=== PATIENT | female | born 1945 | race Caucasian/White ===

== ENCOUNTER → 2017-02-02 | Outpatient (CLI) | payer OTHER ==
[~2017-02-02] MED LIST: CELEBREX 200 M200 M1 PO; DYMISTA NASAL S23 GM NS; FLONASE NASAL; LOPRESSOR50 PO; [UNRECOGNIZED DRUG - OTHER] NASAL
== END ==
LOC: MRI 10:51
DX: M76.62 Achilles tendinitis, left leg (principal); M25.472 Effusion, left ankle

== ENCOUNTER 2018-08-10 12:23 | Inpatient (IN) | payer OTHER ==
[~2018-08-10] VITALS: Ht 157.5 cm; Wt 49.4 kg
--- NOTE | ~2018-08-10 | HC ---
[facility] [place] [address] CONSULTATION Name: KENTON STEVENS Room #: 357-P [facility] IN M.R.#: [id number] Admission: 08/10/18 Attend Phys: Leonard Gee MD Discharge: Date of : 47 Report #: [id number] THIS REPORT FOR: //name// CC: Leonard Benitez FAM unknown El Ley MD REQUESTING PHYSICIAN: Leonard Gee MD REASON FOR CONSULT: Fever in spite of outpatient antibiotics and dropping white count. 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 This originally diagnosed in 01/2016. She began bendamustine and rituximab in 02/2016. She had finished that chemotherapy probably in 07/2016. She had some evidence of progressive disease and unfortunately recently has become more progressive. The patient had a repeat biopsy that showed the same disease. She had a visit with a transplant doctor, who thought that since she was a short relapse, high risk that they would suggest R-CHOP chemotherapy x 4, followed by peripheral stem cell transplant. She wished to proceed with that versus more palliative type direction. She received her first cycle of R-CHOP chemotherapy at the very beginning of 07/2018. Unfortunately, in the office on the , she was having yellow sputum and low-grade temperature, began Levaquin. As an outpatient, this has persisted. She does note that her lymph nodes in the right groin are smaller. The patient reports having some sinus difficulties, which are old for her, but more recently, has more yellowish colored phlegm production, occasional flecks of blood, occasional headaches with fever, not really a sore throat except for coughing, a little bit of queasy stomach with her past steroids. No ankle or arm swelling. No skin rash. No blood in urine or stool. Had little bit of constipation, probably from antiemetics. No diarrhea. Family members around [place], her daughter, son-in-law and child have been slightly sick but it is more of a viral illness. She has been having higher fevers and had fever to 102+ oral last night. 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 Also, history of PSVT. Also, history of sinus difficulties and some seasonal allergies. Does also have a history of mitral valve disease, mild obstructive sleep apnea and asthma. 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 FAMILY HISTORY: Her daughter is a nurse at [employer] [address] [place] [address] CONSULTATION Name: KENTON STEVENS Room #: 357-P [facility] IN M.R.#: [id number] Admission: 08/10/18 Attend Phys: Leonard Gee MD Discharge: Date of : 47 Report #: [id number]. Her son works here in town. MEDICATIONS: At this time in the hospital currently include loratadine 10 mg daily, allopurinol 100 daily, metoprolol 25 daily, pantoprazole 40 daily, vancomycin q.12, cefepime q.8, guaifenesin 600 b.i.d., Lovenox 40 at bedtime, levofloxacin daily, Tylenol p.r.n., Zofran p.r.n., IV fluids. She is also receiving Tamiflu 75 b.i.d. for 10 doses. PHYSICAL EXAMINATION: GENERAL: The patient appears her stated age. VITAL SIGNS: Height is 5 feet 2, which is 157.5 cm. Weight is 109 pounds or 49.4 kilograms. Blood pressure is 99/49, O2 sat of 93%, respirations 18, pulse 80, temperature last night was 102.9 orally and currently 99.7. HEENT: Oropharynx without any erythema or leukoplakia or petechiae. No enlarged lymph nodes in the supraclavicular, cervical, axillary or inguinal region with the exception of the right groin, which is of some residual lymph nodes, but much smaller than before, earlier had been more about 2 x 6 cm and flat. LUNGS: Do have initial rhonchi, which I think is central, that appear to clear with cough. There may be some slight airway noise. No wheezes, has good symmetric and unlabored expansion. CARDIOVASCULAR: Heart appears regular rate. ABDOMEN: Scaphoid, nontender, no masses. EXTREMITIES: No clubbing, cyanosis or edema. LABORATORY DATA REVIEW: Notable for potassium of 3.4. Sodium on admit of 128, BUN 12, creatinine 0.6. AST, ALT, alkaline phosphatase normal or slightly low range. Albumin slightly low at 3. Lactate was 1.0. White count yesterday 2.2, today 1.6; hemoglobin yesterday 10.9, today 9.9; platelets yesterday 56, today 48; ANC yesterday was 1.8, today is pending. Viral panel pending. UA without bacteria or white cells, nitrite negative. ASSESSMENT AND PLAN: 1. Fever in spite of p.o. antibiotics with dropping white count after chemo and status post Neulasta, had had nasal congestion. Agree with broad-spectrum antibiotics and cultures pending. The patient is aware that she will probably be here somewhere between 2 and 5 days. Appreciate ID and hospitalist care of the patient. 2. Drop in white count, suspect that she will become neutropenic in spite of Neulasta, precautions as needed. Follow serial CBCs. 3. Follicular grade 1 -- 2/3 lymphoma, status post first cycle of R-CHOP with Neulasta. We will see how she responds and then determine whether to do dose adjustments or not. 4. History of paroxysmal supraventricular tachycardia, metoprolol. 5. Sinus difficulties. Guaifenesin and other medications. [facility] [address] [place] [address] CONSULTATION Name: KENTON STEVENS Room #: 357-P [facility] IN M.R.#: [id number] Admission: 08/10/18 Attend Phys: Leonard Gee MD Discharge: Date of : 47 Report #: [id number] 6. Asthma. Respiratory inhaler medications as needed. We will follow with you. <ELECTRONICALLY SIGNED> By: Dominick Blackman MD 08/14/18 0716 [id number] [id number] Dominick Blackman MD /nt
--- NOTE | ~2018-08-10 | HC ---
[facility] [place] [address] CONSULTATION Name: RODNEYKENTON E Room #: 357-P [facility] IN .R.#: [id number] Admission: 08/10/18 Attend Phys: Leonard Gee MD Discharge: Date of : 47 Report #: [id number] THIS REPORT FOR: //name// CC: Leonard BAUTISTA unknown Infectious Diseases Consultation REASON FOR CONSULTATION: I was asked to evaluate concerning fever in the setting of chemotherapy for lymphoma relapse. HISTORY OF PRESENT ILLNESS: The patient was a 72-year-old who presents with a 2-day history of increased cough, sputum production, nasal congestion and postnasal drip. She had temperature 102.9, degrees associated with chills, mild sweats. She has undergone chemotherapy 1 week ago, associated with dose of Neulasta. On 07/29/2018, she was started on Levaquin. Despite 2 days of this, continues to run fever. She has had mild dyspnea. No pleuritic chest pain. No hemoptysis. She has had sinus congestion with small amount of postnasal drip. She has noticed a hoarse voice. Mild headache with her fever. No mental status changes. No chest pain, palpitations, orthopnea or PND. No nausea, vomiting or diarrhea. No dysuria or frequency. No rashes or arthritis symptoms. She has a right chest Port-A-Cath, which is now accessed. There has been no travel. She has been around no other persons that have been ill with upper respiratory tract infection. She has been vaccinated for pneumonia and influenza. She is a nonsmoker. ALLERGIES: AZITHROMYCIN, CLINDAMYCIN, allergic to PENICILLIN with rash, although tolerates cephalosporins. CODEINE. MEDICATIONS: As noted on her MAR, now on vancomycin and aztreonam. PAST MEDICAL HISTORY: PSVT, left oophorectomy, chronic sinusitis, non-Hodgkin's follicular lymphoma relapse, previously treated 2 years ago. Relapse has been in the right groin with associated right lymphedema. FAMILY HISTORY: Noncontributory. SOCIAL HISTORY: Retired dental hygienist. Nonsmoker, minimal alcohol intake. No HIV risk factors. REVIEW OF SYSTEMS: CONSTITUTIONAL: As above. EYES: Negative. HEENT: As above. RESPIRATORY: As above. CARDIOVASCULAR: As above. [address] [address] CONSULTATION Name: EKNTON STEVENS Room #: 357-P [facility] IN M.R.#: [id number] Admission: 08/10/18 Attend Phys: Leonard Gee MD Discharge: Date of : 47 Report #: [id number] GASTROINTESTINAL: Negative. GENITOURINARY: Negative. MUSCULOSKELETAL: Negative. SKIN: Negative. NEUROLOGIC: Negative. ENDOCRINE: Negative. HEMATOLOGIC AND LYMPHATIC: As above. PHYSICAL EXAMINATION: GENERAL: The patient was alert, oriented, and cooperative. VITAL SIGNS: Maximum temperature is 102.9 earlier today. Now 99.3, pulse 73, blood pressure 110/60, respiratory rate 20, O2 saturation 95% on room air. HEENT: The patient had intermittent nonproductive cough. She had some sinus congestion and a hoarse voice. She appeared her stated age. Eyes: No conjunctivitis or scleral icterus. Mouth without mucositis or lesion. Dentition in good repair. NECK: Supple with no thyromegaly, mass or JVD. LUNGS: Clear anteriorly with few crackles heard in the left base posteriorly. No consolidation. HEART: Regular, without murmur, gallop or rub. Pulses in the extremities were normal. ABDOMEN: Soft, nontender, no hepatosplenomegaly or mass appreciated. BACK: without midline tenderness or CVA tenderness. EXTREMITIES: Without edema, cyanosis or clubbing. NEUROLOGIC: Nonfocal with cranial nerves intact. Normal strength throughout. Sensory to fine touch, upper and lower extremities normal. PSYCHIATRIC: Normal mood. SKIN: No rashes. LYMPH: Palpable nodes in the right groin. LABORATORY STUDIES: Urinalysis unremarkable. Hemoglobin 10.9, WBC 2.2 with 83% neutrophils, 20% bands, platelet count [id number]. Lactate 1. Sodium 128, potassium 3.5, bicarbonate 26, creatinine 0.6. Liver function tests normal. Albumin at 3.0. Influenza antigen negative. IMAGING DATA: Chest x-ray: No acute process. IMPRESSION: A 72-year-old with recurrent lymphoma and non-Hodgkin's lymphoma, now on her second course of chemotherapy within the last 2 years. First round of this course was started a week ago. Now presents with fever and neutropenia and thrombocytopenia. She has sinus congestion along with cough. At this time, no evidence of consolidating infiltrate. At a minimum, she has bronchitis. No evidence of intraabdominal or urinary tract infection at this point. Port-A-Cath infection would be considered, although respiratory tract seems most likely. [facility] [address] [place] [address] CONSULTATION Name: KENTON STEVENS Room #: 357-P [facility] IN M.R.#: [id number] Admission: 08/10/18 Attend Phys: Leonard Gee MD Discharge: Date of : 47 Report #: [id number] ALLERGIES: Multiple medications. RECOMMENDATION: Given the severity of her condition, noting new onset fever and recent chemotherapy with cytopenias, we will need broad antibiotic coverage. Cultures of blood, sputum. Viral respiratory panel. Urine antigens. Also check CT scan of the sinuses and repeat chest x-ray in a.m. Monitor oxygen saturation. Continue with broad coverage including vancomycin, Levaquin, cefepime, and Tamiflu. <ELECTRONICALLY SIGNED> By: Wander Chavez MD 08/11/18 1528 [id number] Wander Chavez MD /nt
[2018-08-10 12:31] VITALS: BP 114/44
[2018-08-10 13:33] LABS: HEMATOCRIT 30.8 % (37.0-47.0); HEMOGLOBIN 10.9 gm/dL (12.0-15.0); MCH 32.7 pg (26.0-34.0); MCHC 35.3 g/dL (28.0-37.0); MCV 92.7 fL (80.0-100.0); RBC 3.32 mil/uL (4.20-5.00); RDW 12.6 % (10.5-14.5); WBC 2.2 thou/uL (4.0-11.0)
[2018-08-10 13:44] LABS: CALCIUM 7.5 mg/dL (8.5-10.1); CREATININE 0.6 mg/dL (0.6-1.0); POTASSIUM 3.5 mmol/L (3.5-5.1)
[2018-08-10 13:49] LABS: TOTAL BILIRUBIN 0.3 mg/dL (<0.1-1.0); TOTAL PROTEIN 5.6 g/dL (6.4-8.2)
[2018-08-10 14:02] LABS: ABSOLUTE NEUTROPHILS 1.8 thou/uL (1.4-8.2); ANISOCYTOSIS 1+; HYPOCHROMASIA SLIGHT; NUCLEATED RBCS 1 /100WBC; TOXIC GRANULATION 2+
[2018-08-10 14:03] LABS: POLYCHROMASIA OCCASIONAL
[2018-08-10 14:06] LABS: PLATELET COUNT 56 thou/uL (150-400)
[2018-08-10 14:55] LABS: URINE BILIRUBIN NEGATIVE (Negative); URINE BLOOD NEGATIVE (Negative); URINE CLARITY CLEAR; URINE COLOR YELLOW; URINE GLUCOSE-RANDOM* NEGATIVE (Negative); URINE KETONES NEGATIVE (Negative); URINE LEUKOCYTES-REFLEX NEGATIVE (Negative); URINE NITRITE-REFLEX NEGATIVE (Negative); URINE PROTEIN (DIPSTICK) NEGATIVE (Negative); URINE UROBILINOGEN 0.2 E.U./dl (0.2-1.0)
[2018-08-10] MEDS ORDERED: ALLOPURINOL 10100 M1 PO (15:05)
[2018-08-10] MEDS ORDERED: PRILOSEC 10MG C10 MG PO (15:05)
[2018-08-10] MEDS ORDERED: CLARITIN10 M3 PO (15:05)
[2018-08-10] MEDS ORDERED: LEVAQUIN 500 M500 M2 PO (15:06)
[2018-08-10 15:36] VITALS: BP 119/55
[2018-08-10 15:49] VITALS: BP 100/52
[2018-08-10 16:12] VITALS: BP 107/50
[2018-08-10 16:21] VITALS: BP 107/50
[2018-08-10] MEDS ORDERED: TOPROL XL25 MG PO (16:47)
[2018-08-10 19:20] VITALS: BP 110/60
[2018-08-10] MEDS ORDERED: MUCINEX600 MG PO (21:30)
[2018-08-11 03:26] VITALS: BP 99/49
[2018-08-11 06:10] LABS: HEMATOCRIT 28.2 % (37.0-47.0); MCV 93.3 fL (80.0-100.0); RBC 3.02 mil/uL (4.20-5.00)
[2018-08-11 06:12] LABS: CALCIUM 7.2 mg/dL (8.5-10.1); CREATININE 0.6 mg/dL (0.6-1.0); POTASSIUM 3.4 mmol/L (3.5-5.1)
[2018-08-11 06:13] LABS: HEMOGLOBIN 9.9 gm/dL (12.0-15.0); MCH 32.7 pg (26.0-34.0)
[2018-08-11 06:21] LABS: WBC 1.6 thou/uL (4.0-11.0)
[2018-08-11 08:00] VITALS: BP 106/57
[2018-08-11 15:54] VITALS: BP 114/65
[2018-08-11 19:10] VITALS: BP 119/56
[2018-08-12 04:08] VITALS: BP 110/59
[2018-08-12 05:58] LABS: HEMATOCRIT 31.8 % (37.0-47.0); HEMOGLOBIN 10.9 gm/dL (12.0-15.0); MCH 32.1 pg (26.0-34.0); MCHC 34.3 g/dL (28.0-37.0); MCV 93.7 fL (80.0-100.0); PLATELET COUNT 65 thou/uL (150-400); RDW 13.6 % (10.5-14.5); WBC 2.7 thou/uL (4.0-11.0)
[2018-08-12 06:26] LABS: CALCIUM 7.5 mg/dL (8.5-10.1); CREATININE 0.7 mg/dL (0.6-1.0); POTASSIUM 3.6 mmol/L (3.5-5.1)
[2018-08-12 06:46] LABS: ABSOLUTE NEUTROPHILS 2.1 thou/uL (1.4-8.2); METAMYELOCYTES 1 %; TOXIC GRANULATION 2+
[2018-08-12 06:47] LABS: ANISOCYTOSIS 1+; POLYCHROMASIA OCCASIONAL
[2018-08-12 07:16] VITALS: BP 116/57
[2018-08-12 15:58] VITALS: BP 129/63
[2018-08-12 19:37] VITALS: BP 116/53
[2018-08-13 03:20] VITALS: BP 112/57
[2018-08-13 03:45] LABS: HEMATOCRIT 29.7 % (37.0-47.0); HEMOGLOBIN 9.8 gm/dL (12.0-15.0); MCH 31.1 pg (26.0-34.0); MCHC 33.2 g/dL (28.0-37.0); MCV 93.9 fL (80.0-100.0); RBC 3.16 mil/uL (4.20-5.00); RDW 13.4 % (10.5-14.5)
[2018-08-13 03:49] LABS: CALCIUM 7.4 mg/dL (8.5-10.1); CREATININE 0.6 mg/dL (0.6-1.0); POTASSIUM 3.2 mmol/L (3.5-5.1)
[2018-08-13 07:29] VITALS: BP 121/51
[2018-08-13 12:40] VITALS: BP 118/65
[2018-08-13 16:10] VITALS: BP 118/65
[2018-08-14 03:30] VITALS: BP 117/60
[2018-08-14 05:55] LABS: HEMATOCRIT 28.4 % (37.0-47.0); HEMOGLOBIN 9.5 gm/dL (12.0-15.0); MCH 31.4 pg (26.0-34.0); MCHC 33.6 g/dL (28.0-37.0); MCV 93.5 fL (80.0-100.0); PLATELET COUNT 111 thou/uL (150-400); RBC 3.04 mil/uL (4.20-5.00); RDW 13.2 % (10.5-14.5); WBC 3.6 thou/uL (4.0-11.0)
[2018-08-14 06:10] LABS: CALCIUM 7.8 mg/dL (8.5-10.1); CREATININE 0.5 mg/dL (0.6-1.0); POTASSIUM 3.2 mmol/L (3.5-5.1)
[2018-08-14 07:35] VITALS: BP 112/56
[2018-08-14 09:21] LABS: METAMYELOCYTES 1 %
[2018-08-14 16:21] VITALS: BP 130/75
[2018-08-14 19:10] VITALS: BP 137/65
[2018-08-15 02:11] LABS: ADENOVIRUS Negative (Negative); INFLUENZA A Negative (Negative); INFLUENZA B Negative (Negative); METAPNEUMOVIRUS Negative (Negative); PARAINFLUENZA 1 Negative (Negative); PARAINFLUENZA 2 Positive (Negative); PARAINFLUENZA 3 Negative (Negative); RHINOVIRUS Negative (Negative); RSV A Negative (Negative); RSV B Negative (Negative)
[2018-08-15 06:00] VITALS: BP 120/65
[2018-08-15 07:23] VITALS: BP 108/54
[2018-08-15 07:24] LABS: HEMATOCRIT 27.5 % (37.0-47.0); HEMOGLOBIN 9.6 gm/dL (12.0-15.0); MCH 32.4 pg (26.0-34.0); MCHC 34.8 g/dL (28.0-37.0); MCV 93.1 fL (80.0-100.0); PLATELET COUNT 139 thou/uL (150-400); RBC 2.96 mil/uL (4.20-5.00); RDW 13.6 % (10.5-14.5); WBC 4.1 thou/uL (4.0-11.0)
[2018-08-15 07:49] LABS: CALCIUM 7.9 mg/dL (8.5-10.1); CREATININE 0.5 mg/dL (0.6-1.0); POTASSIUM 3.2 mmol/L (3.5-5.1)
[2018-08-15] MEDS ORDERED: LEVAQUIN 500 M500 M1 PO (08:32)
[2018-08-15 08:45] LABS: ATYPICAL LYMPHS 1 %; METAMYELOCYTES 3 %
[2018-08-15 08:48] LABS: ANISOCYTOSIS SLIGHT; POIKILOCYTOSIS SLIGHT; TOXIC GRANULATION SLIGHT
[2018-08-15 15:56] VITALS: BP 108/54
== END 2018-08-15 17:41 | disposition home or self-care (01) | DRG 808 ==
LOC: ER 12:23 → 3W 15:18 → EROBS 15:18 → 3W 15:49 → ENTRNSPT 08-15 16:57 → 3W 08-15 17:41
PROVIDERS: Hospitalist; Internal Medicine; Physician Assistant; Specialist
DX: D61.810 Antineoplastic chemotherapy induced pancytopenia (principal); E43 Unspecified severe protein-calorie malnutrition; J12.2 Parainfluenza virus pneumonia; E87.1 Hypo-osmolality and hyponatremia; I47.1 Supraventricular tachycardia; K52.1 Toxic gastroenteritis and colitis; Z68.1 Body mass index [BMI] 19.9 or less, adult; G47.33 Obstructive sleep apnea (adult) (pediatric); T45.1X5A Adverse effect of antineoplastic and immunosuppressive drugs, initial encounter; E87.6 Hypokalemia; K21.9 Gastro-esophageal reflux disease without esophagitis; I10 Essential (primary) hypertension; J30.9 Allergic rhinitis, unspecified; J32.9 Chronic sinusitis, unspecified; T36.95XA Adverse effect of unspecified systemic antibiotic, initial encounter; H65.92 Unspecified nonsuppurative otitis media, left ear; J45.909 Unspecified asthma, uncomplicated; Y92.89 Other specified places as the place of occurrence of the external cause; Z85.72 Personal history of non-Hodgkin lymphomas; Z90.721 Acquired absence of ovaries, unilateral; Z79.899 Other long term (current) drug therapy; Z88.1 Allergy status to other antibiotic agents; Z88.5 Allergy status to narcotic agent; Z88.0 Allergy status to penicillin
CPT/HCPCS: 10080